=== PATIENT | female | born 1985 | race Caucasian/White ===

== ENCOUNTER 2019-11-11 22:04 | Inpatient (IN) | payer SELFPAY ==
[~2019-11-11] VITALS: Ht 170.2 cm; Wt 75.0 kg
[2019-11-11] MEDS ORDERED: ADDERALL XR 3030 MG PO (22:12)
[2019-11-11] MEDS ORDERED: ADDERALL 15 MG15 MG PO (22:13)
[2019-11-11] MEDS ORDERED: PROZAC40 MG PO (22:13)
[2019-11-11] MEDS ORDERED: ZANAFLEX4 MG PO (22:14)
[2019-11-11 23:01] LABS: BASOPHILS 0.2 % (0-2); EOSINOPHILS 0.3 % (0-7); HEMATOCRIT 42.3 % (36.0-48.0); HEMOGLOBIN 14.2 g/dL (12-16); IMMATURE GRANULOCYTES 0.3 % (0-5); LYMPHOCYTES 6.7 % (15-50); MCH 31.3 pg (26.0-34.0); MCHC 33.6 g/dL (31.0-37.0); MCV 93.4 fL (80.0-100.0); MEAN PLATELET VOLUME 11.8 fL (7.4-10.4); NEUTROPHILS 87.5 % (40-80); PLATELET COUNT 305 10x3/uL (130-400); RBC 4.53 10x6/uL (4.00-5.40); RDW 12.3 % (11.5-14.5); WBC 20.4 10x3/uL (4.8-10.8)
[2019-11-11 23:17] LABS: CALC OSMOLALITY 278 mosm/kg (275-300); CALCIUM 9.8 mg/dL (8.5-10.1); CARBON DIOXIDE 29.1 mmol/L (21.0-32.0); CHLORIDE - SERUM 102 mmol/L (98-107); CREATININE - SERUM 1.3 mg/dL (0.6-1.3); GLUCOSE 161 mg/dL (74-106); POTASSIUM - SERUM 3.8 mmol/L (3.5-5.1); SODIUM 137 mmol/L (136-145); UREA NITROGEN 17 mg/dL (7-18); eGFR NON AFRICAN AMERICAN 49 mL/min (90-120)
[2019-11-11 23:25] LABS: ALBUMIN 4.4 g/dL (3.4-5.0); ALKALINE PHOSPHATASE 69 U/L (30-120); ALT (SGPT) 23 U/L (10-68); AMYLASE - SERUM 55 U/L (25-115); BILIRUBIN - TOTAL 0.78 mg/dL (0.2-1.3); LIPASE 568 U/L (73-393); PROTEIN - SERUM 7.4 g/dL (6.4-8.2); TROPONIN-I < 0.017 ng/mL (0.000-0.060)
[2019-11-12] VITALS (7 sets, daily range): BP systolic 90–152; BP diastolic 44–76; Ht 170.2 cm; Wt 75.0 kg
[2019-11-12 00:33] LABS: BILIRUBIN NEGATIVE (NEGATIVE); GLUCOSE 50 mg/dL (NEGATIVE); KETONE NEGATIVE (NEGATIVE); NITRITE NEGATIVE (NEGATIVE); SPECIFIC GRAVITY 1.015 (1.005-1.020); UROBILINOGEN NORMAL (NORMAL)
[2019-11-12 00:35] LABS: BACTERIA MODERATE /hpf (NEGATIVE); EPITHELIAL CELLS 0-5 /hpf (0-5); WHITE CELLS - URINE 0-5 /hpf (NEGATIVE)
[2019-11-12 00:38] LABS: UDS - AMPHET POSITIVE QUAL (NEGATIVE); UDS - BARB NEGATIVE QUAL (NEGATIVE); UDS - BENZO NEGATIVE QUAL (NEGATIVE); UDS - COCAINE NEGATIVE QUAL (NEGATIVE); UDS - OPIATE NEGATIVE QUAL (NEGATIVE); UDS - PCP NEGATIVE QUAL (NEGATIVE); UDS - THC POSITIVE QUAL (NEGATIVE)
[2019-11-12 05:26] LABS: APTT 27.7 SECONDS (22.8-39.4); INR 0.96 (0.85-1.17); PROTIME 12.7 SECONDS (11.6-15.0)
[2019-11-12 05:38] LABS: D-DIMER-QUANTITATIVE < 0.27 ug/mLFEU (0.20-0.54)
--- NOTE | 2019-11-12 07:00 | NUR ---
ALERT AND ORIENTED. C/O PAIN, 12/12. NO S/S OF ACUTE DISTRESS NOTED. IV TO RIGHT AC, NS INFUSING @ 150ML/HR. SITE PATENT WITHOUT REDNESS OR SWELLING. FAMILY AT BS. DENIES ANY NEEDS AT THIS TIME. CALL LIGHT IN REACH. WILL CONTINUE TO MONITOR.
[2019-11-12 08:13] LABS: BASOPHILS 0.2 % (0-2); EOSINOPHILS 0.3 % (0-7); HEMATOCRIT 40.2 % (36.0-48.0); HEMOGLOBIN 13.1 g/dL (12-16); IMMATURE GRANULOCYTES 0.3 % (0-5); LYMPHOCYTES 8.9 % (15-50); MCH 30.8 pg (26.0-34.0); MCHC 32.6 g/dL (31.0-37.0); MCV 94.6 fL (80.0-100.0); MEAN PLATELET VOLUME 12.3 fL (7.4-10.4); NEUTROPHILS 84.3 % (40-80); PLATELET COUNT 298 10x3/uL (130-400); RBC 4.25 10x6/uL (4.00-5.40); RDW 12.3 % (11.5-14.5); WBC 15.9 10x3/uL (4.8-10.8)
[2019-11-12 09:57] LABS: AMYLASE - SERUM 46 U/L (25-115); LIPASE 479 U/L (73-393)
--- NOTE | 2019-11-12 18:37 | NUR ---
I have reviewed this patient and I concur with the Shift Assessment completed by the Licensed Practical Nurse today this shift.
--- NOTE | 2019-11-12 18:47 | NUR ---
ALERT AND ORIENTED. C/O PAIN TO LLQ, GAVE MORPHINE FOR PAIN. NO S/S OF ACUTE DISTRESS NOTED. DENIES ANY NEEDS AT THIS TIME. CALL LIGHT IN REACH. WILL CONTINUE TO MONITOR.
--- NOTE | 2019-11-12 22:13 | NUR ---
1915) NOT IN ROOM CHGE OF SHIFT WALKING ROUNDS.DAY NURSE STATES OUT TO SMOKE.WILL ASSESS ON RETURN TO ROOM AND FOLLOW CURRENT PLAN OF CARE
[2019-11-13 00:32] VITALS: BP 99/54
--- NOTE | 2019-11-13 03:26 | NUR ---
I have reviewed this patient and I concur with the Shift Assessment completed by the Licensed Practical Nurse today this shift.
[2019-11-13 06:22] VITALS: BP 110/62
[2019-11-13 06:29] LABS: BASOPHILS 0.2 % (0-2); HEMATOCRIT 39.3 % (36.0-48.0); HEMOGLOBIN 12.4 g/dL (12-16); IMMATURE GRANULOCYTES 0.2 % (0-5); LYMPHOCYTES 20.9 % (15-50); MCH 30.5 pg (26.0-34.0); MCHC 31.6 g/dL (31.0-37.0); MONOCYTES 6.7 % (2-11); PLATELET COUNT 284 10x3/uL (130-400); RBC 4.06 10x6/uL (4.00-5.40); RDW 12.6 % (11.5-14.5)
[2019-11-13 06:36] LABS: MCV 96.8 fL (80.0-100.0); WBC 9.9 10x3/uL (4.8-10.8)
[2019-11-13 06:52] LABS: ALBUMIN 3.4 g/dL (3.4-5.0); ALKALINE PHOSPHATASE 52 U/L (30-120); ALT (SGPT) 19 U/L (10-68); BILIRUBIN - TOTAL 0.63 mg/dL (0.2-1.3); CALCIUM 8.2 mg/dL (8.5-10.1); CHLORIDE - SERUM 108 mmol/L (98-107); MAGNESIUM - SERUM 2.3 mg/dL (1.8-2.4); POTASSIUM - SERUM 3.5 mmol/L (3.5-5.1); SODIUM 141 mmol/L (136-145)
[2019-11-13 06:58] LABS: AMYLASE - SERUM 27 U/L (25-115); CALC OSMOLALITY 278 mosm/kg (275-300); CREATININE - SERUM 0.8 mg/dL (0.6-1.3); GLUCOSE 93 mg/dL (74-106); LIPASE 105 U/L (73-393); UREA NITROGEN 6 mg/dL (7-18); eGFR NON AFRICAN AMERICAN 86 mL/min (90-120)
--- NOTE | 2019-11-13 07:20 | NUR ---
RESTING IN BED, SO IN BED WITH PATIENT. NO S/S OF ACUTE DISTRESS NOTED. IV TO RIGHT AC, NS INFUSING @ 150ML/HR. SITE PATENT WITHOUT REDNESS OR SWELLING. CALL LIGHT IN REACH. WILL CONTINUE TO MONITOR.
[2019-11-13 08:17] VITALS: BP 95/50
--- NOTE | 2019-11-13 09:07 | NUR ---
COLLECTED URINE SPECIMEN. PATIENT REFUSED IN AND OUT CATH, SO COLLECTED SPECIMEN CLEAN CATCH MIDSTREAM.
[2019-11-13] MEDS ORDERED: LEVAQUIN750 MG PO (10:19)
--- NOTE | 2019-11-13 10:50 | MORECARE ---
CASE MANAGEMENT DISCHARGE SUMMARY PATIENT: LAURIE THOMAS UNIT: [id number] ADM DATE: 11/12/19 AGE: 34 : [birth year] SEX: F ROOM/BED: D.[facility] AUTHOR: JOHN DOUGHERTY PHYSICIAN: REFERRING PHYSICIAN: QUEENIE EL MD DATE OF SERVICE: 11/13/19 Discharge Plan Patient Name: LAURIE THOMAS Facility: [facility]:[place] : 1985 Planned Disposition: Anticipated Discharge Date: 11/13/19 Discharge Date: Expected LOS: 1 Initial Reviewer: [email or web address] Initial Review Date: 11/13/2019 Generated: 11/13/19 11:50 am Patient Name: LAURIE THOMAS Page [id number] at 1050 All edits/amendments must be made on the electronic document DICTATION DATE: 11/13/19 1050 ASSOCIATE SALES MANAGER: MARTHA 11/13/19 1050 RPT#: [id number] DC DATE: STATUS: ADM IN [facility] [address] [place] [address] END OF REPORT
--- NOTE | 2019-11-13 10:58 | MORECARE ---
CASE MANAGEMENT DISCHARGE SUMMARY PATIENT: LAURIE THOMAS UNIT: [id number] ADM DATE: 11/12/19 AGE: 34 : [birth year] SEX: F ROOM/BED: D.2236 AUTHOR: JOHN DOUGHERTY PHYSICIAN: REFERRING PHYSICIAN: QUEENIE EL MD DATE OF SERVICE: 11/13/19 Discharge Plan Patient Name: LAURIE THOMAS Facility: [facility]:[place] : 1985 Planned Disposition: Anticipated Discharge Date: 11/13/19 Discharge Date: Expected LOS: 1 Initial Reviewer: [email or web address] Initial Review Date: 11/13/2019 Generated: 11/13/19 11:58 am Comments DCP- Discharge Planning Updated by [email or web address]: Nellie Mccracken on 11/13/19 9:[address] Patient Name: LAURIE THOMAS Admission Status: ER Accout number: [id number] Admission Date: 11-12-2019 : 1985 Admission Diagnosis: Attending: QUEENIE EL Current LOS: 1 Anticipated DC Date: 11-13-2019 Planned Disposition: Primary Insurance: UNINSURED DISCOUNT PLAN Discharge Planning Comments: CM met with patient at bedside after explaining CM role and obtaining verbal consent. CM discussed availability / needs of home health, REHAB and medical equipment. PATIENT DENIES ANY DISCHARGE NEEDS. PLAN HOME WITH [facility] TODAY. Draw String Knotter: Nellie Mccracken DCPIA - Discharge Planning Initial Assessment Updated by [email or web address]: Nellie Mccracken on 11/13/19 10:51 am * Is the patient Alert and Oriented? Yes * PCP [facility] IN [place]/HAS APPT WITH ROMANO * Pharmacy [facility] * Preadmission Environment Home with Family * ADLs Independent * List name and contact numbers for known caregivers / representatives who currently or will assist patient after discharge: KULWANT THOMAS, SPOUSE, * Additional services required to return to the preadmission environment? No * Can the patient safely return to the preadmission environment? Yes * Has this patient been hospitalized within the prior 30 days at any hospital? No Last DP export: 11/13/19 9:50 a Patient Name: LAURIE THOMAS Page [id number] at 1058 All edits/amendments must be made on the electronic document DICTATION DATE: 11/13/191057 BACKING IN MACHINE TENDER: MARTHA 11/13/191057 RPT#: [id number] DC DATE: STATUS: ADM IN [facility] [address] [place] [address] END OF REPORT
--- NOTE | 2019-11-13 11:19 | NUR ---
DISCHARGED PATIENT HOME WITH FAMILY. DISCONTINUED IV CATHETER TIP INTACT. WENT OVER DISCHARGE INSTRUCTIONS, VERBALIZED UNDERSTANDING. DENIES ANYTHING FURTHER.
--- NOTE | 2019-11-14 08:39 | MORECARE ---
CASE MANAGEMENT DISCHARGE SUMMARY PATIENT: LAURIE THOMAS UNIT: [id number] ADM DATE: 11/12/19 AGE: 34 : 83 SEX: F ROOM/BED: D.2236 AUTHOR: FARHATDOC PHYSICIAN: REFERRING PHYSICIAN: QUEENIE EL MD DATE OF SERVICE: 11/14/19 Discharge Plan Patient Name: LAURIE THOMAS Facility: [facility]:[place] : 1985 Planned Disposition: Anticipated Discharge Date: 11/13/19 Discharge Date: 11/13/2019 Expected LOS: 1 Initial Reviewer: [email or web address] Initial Review Date: 11/13/2019 Generated: 11/14/19 9:39 am Comments DCP- Discharge Planning Updated by [email or web address]: Nellie Mccracken on 11/13/19 9:[address] Patient Name: LAURIE THOMAS Admission Status: ER Accout number: [id number] Admission Date: 11-12-2019 : 1985 Admission Diagnosis: Attending: QUEENIE EL Current LOS: 1 Anticipated DC Date: 11-13-2019 Planned Disposition: Primary Insurance: UNINSURED DISCOUNT PLAN Discharge Planning Comments: CM met with patient at bedside after explaining CM role and obtaining verbal consent. CM discussed availability / needs of home health, REHAB and medical equipment. PATIENT DENIES ANY DISCHARGE NEEDS. PLAN HOME WITH [place] TODAY. Civil Engineering Manager: Nellie Mccracken DCPIA - Discharge Planning Initial Assessment Updated by [email or web address]: Nellie Mccracken on 11/13/19 10:51 am * Is the patient Alert and Oriented? Yes * PCP [facility] IN [place]/HAS APPT WITH ROMANO * Pharmacy [facility] * Preadmission Environment Home with Family * ADLs Independent * List name and contact numbers for known caregivers / representatives who currently or will assist patient after discharge: KULWANT THOMAS, SPOUSE, * Additional services required to return to the preadmission environment? No * Can the patient safely return to the preadmission environment? Yes * Has this patient been hospitalized within the prior 30 days at any hospital? No Last DP export: 11/13/19 9:58 a Patient Name: LAURIE THOMAS Page [id number] at 0839 All edits/amendments must be made on the electronic document DICTATION DATE: 11/14/19838 CASTING FINISHER: MARTHA 11/14/19838 RPT#: [id number] DC DATE:11/13/19 STATUS: DIS IN [facility] [address] [place] [address] END OF REPORT
== END 2019-11-13 11:20 | disposition home or self-care (01) | DRG 693 ==
LOC: D.ER 22:04 → D.MS 11-12 01:17 → OBSVTIME 11-12 01:17 → D.MS 11-12 14:32
PROVIDERS: Emergency Medicine; Family Medicine; ADMIT Family Medicine; ATTEND Family Medicine
DX: N11.1 Chronic obstructive pyelonephritis (principal); K85.90 Acute pancreatitis without necrosis or infection, unspecified; N39.0 Urinary tract infection, site not specified; F17.293 Nicotine dependence, other tobacco product, with withdrawal; F41.9 Anxiety disorder, unspecified; F90.9 Attention-deficit hyperactivity disorder, unspecified type; F12.90 Cannabis use, unspecified, uncomplicated; E86.0 Dehydration